=== PATIENT | male | born 1990 | race Caucasian/White ===

== ENCOUNTER 2021-12-03 18:48 | Emergency (ER) | payer BC ==
[2021-12-03] MEDS ORDERED: Sodium Chloride 0.9% 10 ML Syringe FLUSH PRN (20:01)
[2021-12-03] MEDS ORDERED: cefTRIAXone 2 GM in Sodium Chloride 0.9% 100 ML IV ONE (20:13)
[2021-12-03 21:19] LABS: ESTIMATED GFR 83 mL/min (>60)
== END 2021-12-03 21:40 | disposition home or self-care (01) ==
LOC: JD.ED 18:48
DX: L03.116 Cellulitis of left lower limb (principal)
CPT/HCPCS: 36415; 71045; 80053; 84484; 85025; 85379; 86140; 93005; 93971; 96365; 99284; J0696; J3490; 93010

== ENCOUNTER 2021-12-06 19:02 | Emergency (ER) | payer BC ==
[2021-12-06] MEDS ORDERED: Ondansetron 4 MG/2 ML SDV IVPUSH ONE (20:03)
[2021-12-06] MEDS ORDERED: HYDROmorphone 0.5 MG/0.5 ML Syringe IVPUSH ONE ×2 (20:03→20:27)
[2021-12-06] MEDS ORDERED: Sodium Chloride 0.9% 1,000 ML IV STA (20:03)
[2021-12-06] MEDS ORDERED: Ketorolac 30 MG/ML SDV IVPUSH ONE (20:47)
[2021-12-06] MEDS ORDERED: Acetaminophen/oxyCODONE 325-5 MG Tab PO ONE (22:29)
== END 2021-12-06 23:03 | disposition home or self-care (01) ==
LOC: JD.ED 19:02
DX: N20.0 Calculus of kidney (principal); Z79.899 Other long term (current) drug therapy
CPT/HCPCS: 36415; 51798; 74176; 80053; 81001; 85025; 96361; 96374; 96375; 99284; A9270; J1170; J1885; J2405; J7030

== ENCOUNTER 2021-12-08 11:10 | Emergency (ER) | payer BC ==
[2021-12-08] MEDS ORDERED: Sodium Chloride 0.9% 10 ML Syringe FLUSH PRN (11:45)
[2021-12-08] MEDS ORDERED: Tamsulosin 0.4 MG Cap.ER PO ONE (11:49)
[2021-12-08] MEDS ORDERED: HYDROmorphone 0.5 MG/0.5 ML Syringe IVPUSH ONE (11:49)
[2021-12-08] MEDS ORDERED: Sodium Chloride 0.9% 1,000 ML IV STA (11:49)
== END 2021-12-08 14:27 | disposition home or self-care (01) ==
LOC: JD.ED 11:10
DX: N20.0 Calculus of kidney (principal); Z79.899 Other long term (current) drug therapy
CPT/HCPCS: 36415; 74018; 80053; 81001; 85025; 96361; 96374; 99284; A9270; J1170; J3490; J7030